=== PATIENT | male | born 1965 | race Caucasian/White ===

== ENCOUNTER → 2016-12-03 | Outpatient (CLI) | payer BC ==
--- NOTE | 2016-12-07 11:12 | SLEEPCENT ---
DATE OF PROCEDURE: 12/03/2016 ORDERED BY: Petra Bocanegra. Nocturnal polysomnography was performed for the titration of pressure therapy in this patient with obstructive sleep apnea syndrome. For testing, the patient was fit with a [employer] Quattro full face mask of small size, 6 cm of water pressure was initially applied to the circuit and the lights were extinguished. 6 hours and 42 minutes of data were reviewed. There were 283 minutes of sleep identified. Sleep latency was prolonged at 24 minutes. REM latency was prolonged at 131 minutes. Sleep architecture was fair with 3 rapid eye movement (REM) periods appreciated. Overall sleep efficiency was 71%. EKG showed a sinus rhythm with an average heart rate of 52 beats per minute. EEG showed mild coarsening in background, otherwise normal wave forms for wake and sleep. Respiratory events were best palliated with CPAP at a pressure of +9. Remaining measures of sleep physiology were normal. IMPRESSION: Obstructive sleep apnea syndrome (G47.33). RECOMMENDATION: Nightly use of pressure therapy 9 cm of water.
== END ==
LOC: M SLEEP 20:01
PROVIDERS: ATTEND Nurse Practitioner Adult Health
DX: G47.33 Obstructive sleep apnea (adult) (pediatric) (principal)

== ENCOUNTER 2017-07-26 08:47 | Day surgery (SDC) | payer BC ==
[2017-07-26] MEDS ORDERED: NS 1,000 ML IV (10:45)
[2017-07-26] MEDS ORDERED: PROPOFOL 200 MG/20 ML VIAL As Ordered (10:45)
== END 2017-07-26 11:51 | disposition home or self-care (01) ==
LOC: M OPP 11:51
DX: Z12.11 Encounter for screening for malignant neoplasm of colon (principal); K63.5 Polyp of colon; K57.30 Diverticulosis of large intestine without perforation or abscess without bleeding; G47.33 Obstructive sleep apnea (adult) (pediatric); E78.00 Pure hypercholesterolemia, unspecified; M54.9 Dorsalgia, unspecified; Z99.89 Dependence on other enabling machines and devices; Z79.899 Other long term (current) drug therapy
CPT/HCPCS: 45385

== ENCOUNTER 2017-09-22 10:57 | Day surgery (SDC) | payer BC ==
[2017-09-22] MEDS: LR 1,000 ML IV (11:45)
== END 2017-09-22 13:50 | disposition home or self-care (01) ==
LOC: M SDC 10:57
DX: G47.33 Obstructive sleep apnea (adult) (pediatric) (principal); E78.5 Hyperlipidemia, unspecified; M54.5 Low back pain
CPT/HCPCS: 31575

== ENCOUNTER → 2018-03-28 | Day surgery (SDC) | payer BC ==
[~2018-03-28] MED LIST: LIDOCAINE PRES-FREE 2% 10ML AMP As Ordered; LR 1,000 ML IV; METOCLOPRAMIDE INJ 10MG/2ML VIAL (J2765) As Ordered; MIDAZOLAM INJ 2 MG/2 ML VIAL (J2250) As Ordered; ONDANSETRON 4MG/2ML VIAL (J2405) As Ordered; PROPOFOL 200 MG/20 ML VIAL As Ordered; SUCCINYLCHOLINE 100 MG/5 ML SYRINGE (J0330) As Ordered; dexameTHASONE 4 MG/ML 1ML VIAL (J1100) As Ordered; fentaNYL 100 MCG/2 ML INJECTION (J3010) As Ordered
[2018-03-28] MEDS: LR 1,000 ML IV (11:20)
== END | disposition home or self-care (01) ==
LOC: M SDC 10:34
DX: G47.30 Sleep apnea, unspecified (principal); Z53.20 Procedure and treatment not carried out because of patient's decision for unspecified reasons
CPT/HCPCS: J2405

== ENCOUNTER 2018-04-06 10:35 | Observation (INO) | payer BC ==
[2018-04-06] MEDS: LR 1,000 ML IV ×2 (11:10→21:10)
[2018-04-06] MEDS ORDERED: LIDOCAINE W/EPINEPHRINE 1% 20ML VIAL As Ordered (12:36)
[2018-04-06] MEDS ORDERED: BUPIVACAINE/EPIN 0.5% 30 ML VIAL As Ordered (12:36)
[2018-04-06] MEDS ORDERED: dexameTHASONE 4 MG/ML 1ML VIAL (J1100) As Ordered ×2 (13:41)
[2018-04-06] MEDS ORDERED: fentaNYL 250 MCG/5 ML INJECTION (J3010) As Ordered (13:41)
[2018-04-06] MEDS ORDERED: MIDAZOLAM INJ 2 MG/2 ML VIAL (J2250) As Ordered (13:41)
[2018-04-06] MEDS ORDERED: ePHEDrine SULFATE 25 MG/5 ML(5MG/ML) SYRINGE As Ordered (13:42)
[2018-04-06] MEDS ORDERED: PROPOFOL 200 MG/20 ML VIAL As Ordered ×2 (13:42→14:29)
[2018-04-06] MEDS ORDERED: PHENYLephrine HCL 500 MCG/5 ML (100MCG/ML) SYRINGE (J2370) As Ordered (13:42)
[2018-04-06] MEDS ORDERED: LIDOCAINE 2% INJ 100 MG/5 ML SDV (FOR ANES.) As Ordered (13:42)
[2018-04-06] MEDS ORDERED: ONDANSETRON 4MG/2ML VIAL (J2405) As Ordered (13:42)
[2018-04-06] MEDS ORDERED: SUCCINYLCHOLINE 100 MG/5 ML SYRINGE (J0330) As Ordered (14:08)
[2018-04-06] MEDS ORDERED: ROCURONIUM BROMIDE 50 MG/5 ML VIAL As Ordered ×2 (14:08→14:29)
[2018-04-06] MEDS: EPINEPHrine 1MG/ML INJ 30ML MD-VIAL XX (14:51)
[2018-04-06] MEDS ORDERED: GLYCOPYRROLATE INJ 0.2 MG/ML 2 ML VIAL As Ordered ×2 (15:44)
[2018-04-06] MEDS ORDERED: NEOSTIGMINE 10 MG/10 ML VIAL (J2710) As Ordered (15:44)
[2018-04-06] MEDS ORDERED: fentaNYL 100 MCG/2 ML INJECTION (J3010) As Ordered (16:13)
[2018-04-06] MEDS ORDERED: PERCOCET 5MG/325MG TAB PO (16:45)
[2018-04-06] MEDS ORDERED: fentaNYL 100 MCG/2 ML INJECTION (J3010) IV (16:45)
[2018-04-06] MEDS ORDERED: ONDANSETRON 4MG/2ML VIAL (J2405) IV (16:45)
[2018-04-06] MEDS: HYDROMORPHONE HCL 0.5 MG/ 0.5 ML SYRINGE (J1170 PER 1) IV ×2 (17:00→17:05)
[2018-04-06] MEDS ORDERED: PROMETHAZINE INJ 25 MG/ML VIAL (J2550) IM (20:45)
[2018-04-06] MEDS: MORPHINE 4 MG/ML 1ML VIAL/SYRINGE (J2270) IV (21:08)
[2018-04-07] MEDS: LR 1,000 ML IV ×3 (02:30→12:30)
[2018-04-07] MEDS: dexameTHASONE 20 MG/5 ML VIAL (J1100) IV ×2 (03:24→13:09)
[2018-04-07] MEDS: MORPHINE 4 MG/ML 1ML VIAL/SYRINGE (J2270) IV ×2 (03:50→13:13)
[2018-04-07] MEDS: NORCO, ANEXSIA 5/325MG TABLET (HYDROcodone/ACETAMINOPHEN) PO (21:00)
[2018-04-08] MEDS: dexameTHASONE 20 MG/5 ML VIAL (J1100) IV (03:07)
[2018-04-08] MEDS: NORCO, ANEXSIA 5/325MG TABLET (HYDROcodone/ACETAMINOPHEN) PO (03:31)
== END 2018-04-08 10:12 | disposition home or self-care (01) ==
LOC: M SDC 10:35 → M PCU 19:37
DX: G47.33 Obstructive sleep apnea (adult) (pediatric) (principal); Z79.899 Other long term (current) drug therapy; E78.2 Mixed hyperlipidemia; F17.210 Nicotine dependence, cigarettes, uncomplicated
CPT/HCPCS: 31400

== ENCOUNTER → 2019-05-18 | Outpatient (REF) | payer BC ==
[~2019-05-18] MED LIST changes: +ALLE180T33 PO; -LIDOCAINE PRES-FREE 2% 10ML AMP As Ordered; -LR 1,000 ML IV; -METOCLOPRAMIDE INJ 10MG/2ML VIAL (J2765) As Ordered; -MIDAZOLAM INJ 2 MG/2 ML VIAL (J2250) As Ordered; -ONDANSETRON 4MG/2ML VIAL (J2405) As Ordered; -PROPOFOL 200 MG/20 ML VIAL As Ordered; +SIMV40TA2 PO; -SUCCINYLCHOLINE 100 MG/5 ML SYRINGE (J0330) As Ordered; -dexameTHASONE 4 MG/ML 1ML VIAL (J1100) As Ordered; -fentaNYL 100 MCG/2 ML INJECTION (J3010) As Ordered
== END ==
LOC: M LAB REF 14:49
PROVIDERS: ATTEND Otolaryngology
DX: T81.30XA Disruption of wound, unspecified, initial encounter (principal); Y83.8 Other surgical procedures as the cause of abnormal reaction of the patient, or of later complication, without mention of misadventure at the time of the procedure

== ENCOUNTER → 2020-07-11 | Outpatient (REF) ==
[~2020-07-11] MED LIST changes: -SIMV40TA2 PO; +SIMV40TA20 PO
--- NOTE | 2020-07-11 16:03 | REP ---
INDICATION: AUTOPSY. COMPARISON: Comparison is made with images from July 10, 2012.. TECHNIQUE: Single AP view of the pelvis. FINDINGS: The bony pelvic ring appears intact. No pelvic or sacral fracture is appreciated. The proximal femurs appear intact. There are multiple areas of opaque debris over the right iliac crest left iliac crest and periarticular region. There is evidence of soft tissue emphysema in the myofascial interfaces in the probe proximal hip region on the right. IMPRESSION: No pelvic, hip or sacral fracture is seen. Opaque debris and possible soft tissue injury as above. <Electronically signed by Inder Bar > 07/11/20 [id number]
--- NOTE | 2020-07-11 16:06 | REP ---
INDICATION: AUTOPSY. COMPARISON: None. TECHNIQUE: Single supine AP radiograph. FINDINGS: There is dense confluent opacification in the upper half of each lung. Infiltrate is seen throughout the left lung and interstitial markings are somewhat increased in the right base as well. Diaphragms are not obscured. Mediastinum contours are obscured by the opacity in the upper lung zones. The trachea appears to be midline. The heart not displaced or obviously enlarged. The extrathoracic soft tissues are irregular bilaterally. There is opaque debris projecting in the supraclavicular region on the left. No apparent fracture. IMPRESSION: Extensive dense consolidation in the upper lung zones bilaterally obscuring the mediastinal contours. This suggests extensive pleuroparenchymal hemorrhage. Less confluent opacification or infiltrate in the left base. <Electronically signed by Inder Bar > 07/11/20 [id number]
--- NOTE | 2020-07-11 16:08 | REP ---
INDICATION: AUTOPSY. COMPARISON: None. TECHNIQUE: AP and lateral views of the skull are presented. FINDINGS: The bony calvarium is intact. No skull fracture is seen. No bony destructive lesion is observed. The orbital and paranasal sinus margins appear intact. No facial fracture is appreciated. There is a metallic nail superimposed on the right mandible on the frontal view but this is not seen on the lateral film consistent with it being outside the patient. There is some sheet or clothing artifact. IMPRESSION: No traumatic abnormality noted. Bony calvarium appears intact. <Electronically signed by Inder Bar > 07/11/20 [id number]
--- NOTE | 2020-07-11 16:10 | REP ---
INDICATION: AUTOPSY. COMPARISON: None. TECHNIQUE: AP and lateral views of the cervical spine. FINDINGS: There is soft tissue irregularity and opaque debris is seen over the anterior aspect of the upper chest and in the left supraclavicular region. Cervical vertebral body heights are preserved and alignment is normal an AP and lateral radiographs. The lateral radiograph demonstrates the vertebral column down to the level of the C5-6 disc. Prevertebral soft tissues are not widened. No traumatic bony abnormality seen. IMPRESSION: No cervical spine fracture noted. Diffuse soft tissue irregularity. Opaque debris as above. <Electronically signed by Inder Bar > 07/11/20 [id number]
== END ==
LOC: M LAB 09:44